=== PATIENT | male | born 1995 | race Caucasian/White ===

== ENCOUNTER 2018-05-13 10:14 | Emergency (ER) | payer SELFPAY ==
[2018-05-13 10:20] VITALS: BP 143/89
--- NOTE | 2018-05-13 10:42 | EDPHY ---
H & P Time Seen by Provider: 05/13/18 10:18 HPI/ROS: CHIEF COMPLAINT: Right foot injury HISTORY OF PRESENT ILLNESS: 22-year-old male arrives via private vehicle complaining of acute right foot pain. Patient is visiting from [place] on his [facility] that last evening he misstepped and felt a"pop"his forefoot. He is able to bear weight but notes progressive pain throughout the evening into this morning. He is now unable to bear weight secondary to pain. No paresthesia. He does feel instability in his foot. No fall from height. PHYSICAL EXAM (Prior to examination, patient consented to physical exam, hands were washed and my usual and customary physical exam procedures followed) 1) GENERAL: Well-developed, well-nourished, alert and oriented. Appears to be in no acute distress. 2) HEAD: Normocephalic 3) HEENT: Pupils equal, round, reactive to light bilaterally. 4) LUNGS: Breathing comfortably. 5) MUSCULOSKELETAL: Soft tissue swelling and tenderness to palpation dorsal midfoot with no ecchymosis. Soft compartments. proximal tibia and fibula nontender .5th MT nontender negative Patel test, compartments soft. Ankle nontender proximal tibia fibula nontender 6) SKIN: Intact. 7) VASCULAR: DP,PT pulses and cap refill present and brisk DIFFERENTIAL DIAGNOSIS: in no particular order including but not limited to fracture, sprain, compartment syndrome Procedure: Crutches indications for crutch use discussed with patient. Patient fitted for crutches by ER staff. Observed ambulating with crutches. I think the patient has the capacity to safely use crutches. Usual and customary crutch walking precautions provided Procedure: Splint A kirsten boot splint was applied by ER restoration technician. After application of the splint I returned and re-examined the patient. The splint was adequately immobilizing the joint and distal to the splint the patient's circulation and sensation were intact. Patient shows no signs of compartment syndrome. Was given orthopedic precautions. Smoking Status: Never smoked Constitutional: Initial Vital Signs Temperature (C) 37 C 05/13/18 10:18 Heart Rate 75 05/13/18 10:18 Respiratory Rate 16 05/13/18 10:18 Blood Pressure 143/89 H 05/13/18 10:18 O2 Sat (%) 96 05/13/18 10:18 O2 Delivery Mode Room Air Allergies/Adverse Reactions: No Known Allergies Allergy (Unverified 05/13/18 10:18) Home Medications: Medication Instructions Recorded Hydrocodone/APAP 5/325 [Cowden 1 tab PO Q6 PRN #10 tab 05/13/18 5/325 (RX)] MDM/Departure - MDM Imaging Results: Imaging Impressions Foot X-Ray 05/13/18 10:21 Impression: Normal right foot series. Images reviewed myself ED Course/Re-evaluation: Patient is neurovascular intact no evidence of fracture on x-ray interpreted by staff radiologist. Informed of the limitations of x-ray. I do not think emergent MRI indicated. He is visiting from [place]. Given copies of his x-rays recommend follow up with Orthopedics in the next 5 7 days at home. He feels comfortable being discharged. My usual and customary orthopedic precautions and instructions provided. I saw this patient independently based on established practice protocols. Care of patient under supervision of secondary supervising physician Dr Osvaldo Ptael . - Depart Disposition: Home, Routine, Self-Care Clinical Impression: Right foot sprain Qualifiers: Encounter type: initial encounter Qualified Code(s): S93.601A - Unspecified sprain of right foot, initial encounter Condition: Good Instructions: Foot Sprain (ED) Additional Instructions: Return to the ER immediately if you experience discoloration, have worsening pain, numbness, tingling, or any other symptoms that concern you. If you received x-rays in the emergency department today, be advised, that ligamentous , tendon, muscular, and other non-bony injury cannot be fully ruled out. Try to keep your affected extremity elevated above the level of your chest, and keep cold packs on the affected area, for the next 48 hours. Prescriptions: Hydrocodone/APAP 5/325 [Cowden 5/325 (RX)] 1 tab PO Q6 PRN #10 tab PRN Reason: Pain, Severe Referrals: Frank Pate MD [Medical Doctor] - 2-3 days, call for appt.
== END 2018-05-13 11:26 | disposition home or self-care (01) ==
LOC: SUPCPDRO 10:14
DX: S93.601A Unspecified sprain of right foot, initial encounter (principal); X50.1XXA Overexertion from prolonged static or awkward postures, initial encounter
CPT/HCPCS: L4386